=== PATIENT | male | born 1990 | race American Indian/Alaskan Native ===

== ENCOUNTER 2017-09-12 14:15 | Emergency (ER) | payer OTHER ==
[2017-09-12] MEDS ORDERED: Sodium Chloride 0.9% 1,000 ML IV ONE (14:54)
[2017-09-12 15:19] LABS: BASO % 0.3 % (0.0-2.0); EOS % 0.8 % (0.0-4.0); HEMOGLOBIN 13.7 g/dL (12.0-18.0); LYMPH % 16.8 % (20.0-40.0); MEAN CELL VOLUME 93.4 fL (80.0-94.0); MEAN CORPUSCULAR HEMOGLOBIN 31.9 pg (27.0-31.0); MEAN CORPUSCULAR HGB CONC 34.1 g/dL (33.0-37.0); MEAN PLATELET VOLUME 8.5 fL (7.2-11.7); MONO # 0.4 K/uL (0.0-0.8); MONO % 6.8 % (0.0-10.0); NEUT # 4.5 K/uL (1.8-7.0); NEUT % 75.3 % (50.0-75.0); NRBC % 0.1 % (0.0-2.0); RBC 4.31 Mil/uL (4.40-5.90); RED CELL DISTRIBUTION WIDTH 13.3 % (11.5-14.5)
[2017-09-12] MEDS ORDERED: Sodium Chloride 0.9% 1,000 ML ONE (15:22)
[2017-09-12 15:23] LABS: URINE BILIRUBIN NEGATIVE (NEGATIVE); URINE BLOOD NEGATIVE (NEGATIVE); URINE CLARITY Clear (Clear); URINE COLOR Yellow (YELLOW); URINE GLUCOSE (UA) NORMAL (Normal); URINE LEUKOCYTE ESTERASE NEG Leu/uL (Negative); URINE PROTEIN NEGATIVE (NEGATIVE); URINE UROBILINOGEN NORMAL mg/dL (0.2-1.0)
[2017-09-12 15:32] LABS: ALB/GLOB RATIO 1.1 (1.0-2.1); ALT/SGPT 29 U/L (21-72); AST/SGOT 22 U/L (17-59); BLOOD UREA NITROGEN 11 mg/dL (9-20); CALCIUM 8.9 mg/dl (8.6-10.4); GFR AFRICAN-AMERICAN > 60; GFR NON-AFRICAN AMERICAN > 60; LIPASE 61 U/L (23-300)
[2017-09-12] MEDS ORDERED: Iohexol 300 100 ML IJ ONE (16:46)
--- NOTE | 2017-09-12 17:24 | CT ---
PROCEDURE: CT abdomen pelvis 09/12/2017 HISTORY: Right-sided abdominal pain COMPARISON: No prior TECHNIQUE: Contiguous helical/transaxial images of the abdomen and pelvis performed following intravenous injection of approximately 100 cc of Omnipaque 300 contrast material. Additional 2D sagittal and coronal reformats generated. Radiation dose: Total exam DLP = 1157.65 mGy-cm. This CT exam was performed using one or more of the following dose reduction techniques: Automated exposure control, adjustment of the mA and/or kV according to patient size, and/or use of iterative reconstruction technique. . FINDINGS: LOWER THORAX: Lung bases are clear without focal consolidation or effusion. No evidence of basilar pneumothorax. Heart size normal. There is a small hiatal hernia. . LIVER: Liver is mildly enlarged measuring just over 19 cm in CC dimension. . No obvious hepatic mass or collection. Appears to be some mild fatty hepatic infiltration. Portal and splenic veins are opacified. GALLBLADDER AND BILE DUCTS: Gallbladder physiologically distended. No evidence of intraluminal gallbladder calculi. . PANCREAS: Unremarkable. No mass. No ductal dilatation. SPLEEN: Spleen is upper limits of normal measuring over 12 cm . No splenic mass collection or calcification. ADRENALS: No adrenal lesions. Unremarkable. KIDNEYS AND URETERS: Unremarkable. No stone or hydronephrosis. BLADDER: . The urinary bladder is incompletely distended which in part accounts thick-walled appearance. Muscular hypertrophy may contribute. Correlation with urinalysis suggested to exclude possibility of a cystitis which is less likely in a male patient though not excluded. REPRODUCTIVE: Prostate gland appears grossly unremarkable. APPENDIX: Normal-appearing appendix of best seen on axial series 3 image number [id number]. No periappendiceal inflammatory changes. BOWEL: Evaluation of the bowel is limited due to the lack of oral contrast the stomach is incompletely distended. There are multiple fluid-filled loops of small bowel some of which exhibit mild enhancing wall thickening ; rule out enteritis. . The cecum and proximal ascending colon are relatively collapsed which presumably accounts discontinuous wall thickening. . PERITONEUM: Unremarkable. No fluid collection. No free air. . There is a small fat containing umbilical hernia. LYMPH NODES: Multiple small non nonspecific of mesenteric lymph nodes are present possibly reactive however mesenteric adenitis not excluded. VASCULATURE: Unremarkable. No aortic aneurysm. BONES: No fracture or destructive lesion. OTHER FINDINGS: None. IMPRESSION: There are multiple fluid-filled loops of small bowel some of which exhibit mild enhancing wall thickening ; rule out enteritis. . . Borderline hepatomegaly with mild fatty hepatic infiltration. Borderline splenomegaly. Multiple small non nonspecific of mesenteric lymph nodes are present possibly reactive however mesenteric adenitis not excluded.
--- NOTE | 2017-09-12 17:30 | C.PDOC ---
Time Seen by Provider: 09/12/17 14:47 Chief Complaint (Nursing): Abdominal Pain History Per: Patient Onset/Duration Of Symptoms: Days (1) Current Symptoms Are (Timing): Still Present Severity: Moderate Location Of Pain/Discomfort: RUQ, RLQ, Epigastric Quality Of Discomfort: Unable To Describe, "Pain" Exacerbating Factors: Food Alleviating Factors: None Last Bowel Movement: Today Additional History Per: Prior Records Past Medical History Reviewed: Historical Data, Nursing Documentation, Vital Signs Vital Signs: Last Vital Signs Temp 98.7 F 09/12/17 14:22 Pulse 92 H 09/12/17 14:22 Resp 20 09/12/17 14:22 BP 122/80 09/12/17 14:22 Pulse Ox 97 09/12/17 14:22 - Medical History PMH: No Chronic Diseases Surgical History: No Surg Hx Family History: States: Unknown Family Hx - Social History Hx Alcohol Use: Yes Hx Substance Use: No Review Of Systems Except As Marked, All Systems Reviewed And Found Negative. Constitutional: Negative for: Fever, Weakness Cardiovascular: Negative for: Chest Pain Respiratory: Negative for: Shortness of Breath Gastrointestinal: Positive for: Abdominal Pain. Negative for: Vomiting, Diarrhea, Constipation, Melena, Hematochezia, Hematemesis Genitourinary: Negative for: Dysuria, Hematuria, Scrotal Pain Musculoskeletal: Negative for: Neck Pain, Back Pain Skin: Negative for: Rash Neurological: Negative for: Weakness, Numbness Physical Exam - Physical Exam Appears: Non-toxic, No Acute Distress Skin: Normal Color, Warm, Dry, No Rash Head: Atraumatic, Normacephalic Eye(s): bilateral: Normal Inspection, PERRL, EOMI Neck: Normal ROM, Supple Cardiovascular: Rhythm Regular Respiratory: Normal Breath Sounds, No Accessory Muscle Use Gastrointestinal/Abdominal: Soft, Tenderness (Right sided), No Guarding, No Rebound Back: No CVA Tenderness Extremity: Normal ROM Neurological/Psych: Oriented x3, Normal Motor, Normal Sensation ED Course And Treatment - Laboratory Results Result Diagrams: 09/12/17 15:12 09/12/17 15:12 Lab Interpretation: No Acute Changes O2 Sat by Pulse Oximetry: 97 Pulse Ox Interpretation: Normal - CT Scan/US CT abd/pelv Other Rad Studies (CT/US): Read By Radiologist, Radiology Report Reviewed CT/US Interpretation: IMPRESSION: There are multiple fluid-filled loops of small bowel some of which exhibit mild enhancing wall thickening ; rule out enteritis. . . Borderline hepatomegaly with mild fatty hepatic infiltration. Borderline splenomegaly. Multiple small non nonspecific of mesenteric lymph nodes are present possibly reactive however mesenteric adenitis not excluded. Progress Note: Pt has an episode of diarrhea in the ED. Reassessment Condition: Improved Progress - Interventions Interventions:: Observation, Intravenous fluid - Medications Administered Oral: H-2 collins Intravenous: Antiemetic, NSAID - Data Reviewed Data Reviewed: Lab, Diagnostic imaging, Old records - Patient Status Patient status: Mostly improved - Continuity of Care Discussed patient case with:: Patient, ED Nurse - Patient Plan Patient Plan: Discharge, F/U with PCP Disposition Counseled Patient/Family Regarding: Studies Performed, Diagnosis, Need For Followup, Rx Given - Disposition Referrals: [facility] [Outside] Disposition: HOME/ ROUTINE Disposition Time: 17:31 Condition: IMPROVED Additional Instructions: Drink plenty of fluids. Follow up with your doctor or in the clinic. Return to the ER if you develop high fever, not tolerating fluids, worsening of symptoms or if you have any other concerns. Prescriptions: Bismuth Subsalicylate [Pepto Bismol] 2 tab PO Q1 PRN #16 ctb PRN Reason: Diarrhea Instructions: Viral Gastroenteritis, Adult (DC) - Clinical Impression Clinical Impression: Abdominal pain, Enteritis
[2017-09-12 17:38] VITALS: BP 114/76; PULSE 70; RESP 18; TEMP 99.5; O2SAT 99
== END 2017-09-12 17:43 | disposition home or self-care (01) ==
LOC: C.ER 14:15
DX: K52.9 Noninfective gastroenteritis and colitis, unspecified (principal); R10.11 Right upper quadrant pain
CPT/HCPCS: 74177; 80053; 81001; 83690; 85025; 96374; 96375; 99285; J1885; J2765; J7030; Q9967